=== PATIENT | male | born 1955 | race Caucasian/White ===

== ENCOUNTER 2018-03-16 11:06 | Observation (INO) | payer BC ==
[~2018-03-16] VITALS: Ht 167.6 cm; Wt 86.4 kg
[2018-03-16 11:09] VITALS: Ht 167.6 cm; Wt 86.4 kg
[2018-03-16] MEDS ORDERED: AUG500 PO (11:47)
[2018-03-16 12:13] LABS: BASOPHIL % 0.3 % (0-2); PLATELET COUNT 167 x10^3mcL (130-400); RED CELL DISTRIBUTION WIDTH 14.1 % (11.5-14.5)
[2018-03-16 12:26] LABS: CALCIUM 8.7 mg/dL (8.5-10.1); CARBON DIOXIDE 25.6 mmol/L (21-32); CHLORIDE SERUM 106 mmol/L (98-107); CREATININE SERUM 1.1 mg/dL (0.7-1.3); GFR1 > 60 mL/min; GLUCOSE SERUM 112 mg/dL (74-106); POTASSIUM SERUM 3.5 mmol/L (3.5-5.1); SODIUM SERUM 143 mmol/L (136-145)
[2018-03-16 12:30] LABS: ALBUMIN 3.7 g/dL (3.4-5.0); ALKALINE PHOSPHATASE 94 U/L (46-116); ALT/SGPT 50 U/L (16-63); AST/SGOT 33 U/L (15-37); BILIRUBIN TOTAL 0.6 mg/dL (0.20-1.00); C REACTIVE PROTEIN 6.7 mg/dL (<=0.9); TOTAL PROTEIN, SERUM 7.3 g/dL (6.4-8.2)
[2018-03-16 13:10] LABS: CHOLESTEROL/HDL RATIO 4.9; MAGNESIUM 1.9 mg/dL (1.8-2.4); PHOSPHOROUS 2.7 mg/dL (2.5-4.9)
[2018-03-16 13:11] LABS: T3 TOTAL 0.95 ng/mL
[2018-03-16 13:20] LABS: FREE T4 0.78 ng/dL (0.76-1.46); FREE THYROXINE INDEX 1.6 ug/dL (1.4-4.5); T4(THYROXINE) 4.9 ug/dL (4.7-13.3)
[2018-03-16 13:21] LABS: ERYTHROCYTE SED RATE 21 mm/hr (0-20)
[2018-03-16 13:37] VITALS: BP 120/85
[2018-03-16 19:12] VITALS: BP 121/78
[2018-03-16 21:57] VITALS: BP 122/81
[2018-03-17 05:30] VITALS: BP 109/65
[2018-03-17 06:37] LABS: CALCIUM 8.6 mg/dL (8.5-10.1); CARBON DIOXIDE 25.6 mmol/L (21-32); CHLORIDE SERUM 108 mmol/L (98-107); CREATININE SERUM 1.1 mg/dL (0.7-1.3); GFR1 > 60 mL/min; GLUCOSE SERUM 105 mg/dL (74-106); POTASSIUM SERUM 4.1 mmol/L (3.5-5.1); SODIUM SERUM 142 mmol/L (136-145)
[2018-03-17 06:55] LABS: BASOPHIL % 0.5 % (0-2); PLATELET COUNT 173 x10^3mcL (130-400); RED CELL DISTRIBUTION WIDTH 14.3 % (11.5-14.5)
[2018-03-17] MEDS ORDERED: LEVOFLOXACIN500 M1 PO (11:33)
[2018-03-17] MEDS ORDERED: LAC PO (11:33)
[2018-03-17] MEDS ORDERED: NORCO1 TA2 PO (11:34)
[2018-03-17 12:25] VITALS: BP 109/65
[2018-03-17 12:30] VITALS: BP 116/70
[2018-03-17 12:31] LABS: microscopic required? NO
[2018-03-17 12:42] LABS: urine erythrocyte NEGATIVE (NEGATIVE)
== END 2018-03-17 12:58 | disposition home or self-care (01) | DRG 605 ==
LOC: ED 11:06 → DU 11:36
PROVIDERS: Family Medicine; Family Medicine Sports Medicine; Specialist
DX: S50.872A Other superficial bite of left forearm, initial encounter (principal); L03.114 Cellulitis of left upper limb; E78.5 Hyperlipidemia, unspecified; E03.9 Hypothyroidism, unspecified; E66.9 Obesity, unspecified; W55.01XA Bitten by cat, initial encounter; Y93.89 Activity, other specified; Y92.018 Other place in single-family (private) house as the place of occurrence of the external cause; Z68.28 Body mass index [BMI] 28.0-28.9, adult; Z92.21 Personal history of antineoplastic chemotherapy; Z85.21 Personal history of malignant neoplasm of larynx
CPT/HCPCS: 83880; 84439; G0378; J2543; J3490; J7030; Q0092